=== PATIENT | male | born 1955 | race Caucasian/White ===

== ENCOUNTER 2019-09-15 14:22 | Outpatient (CLI) | payer MEDICARE, OTHER | END 2019-09-15 23:59 | disposition home or self-care (01) | LOC: CFH 14:22 | PROVIDERS: ATTEND Internal Medicine | DX: K44.9 Diaphragmatic hernia without obstruction or gangrene (principal); K76.89 Other specified diseases of liver; K76.0 Fatty (change of) liver, not elsewhere classified | CPT/HCPCS: 71250 ==

== ENCOUNTER → 2020-07-06 | Outpatient (CLI) | payer MEDICARE, OTHER ==
[~2020-07-06] MED LIST: REGADENOSON 0.4 MG/5 ML SYRINGE ONE
== END | disposition home or self-care (01) ==
LOC: CFH 12:09
PROVIDERS: ATTEND Internal Medicine Cardiovascular Disease
DX: I95.9 Hypotension, unspecified (principal); R07.9 Chest pain, unspecified; M79.602 Pain in left arm
CPT/HCPCS: 78452; 93017; A9502; J2785